=== PATIENT | female | born 2005 | race Caucasian/White ===

== ENCOUNTER 2023-02-04 09:21 | Emergency (ER) | payer OTHER ==
[2023-02-04] MEDS ORDERED: Ondansetron PF 4 MG/2 ML Vial ONE (09:52)
[2023-02-04] MEDS ORDERED: Mag-Al 1200 mg/1200 mg/30 ML UDCUP ONE (09:53)
[2023-02-04] MEDS ORDERED: Lidocaine Viscous Sol 2% 15 ml UD Cup SSP SCH (10:15)
[2023-02-04] MEDS ORDERED: Lidocaine Viscous Sol 2% 15 ml UD Cup SSW SCH (10:15)
[2023-02-04 10:16] LABS: #Basophils 0.1 thou/uL (0.0-0.2); #Eosinphils 0.1 thou/uL (0.0-0.7); #Monocytes 0.8 thou/uL (0.11-0.59); #Neutrophils 10.3 thou/uL (1.40-6.50); %Basophils 0.4 % (0.0-1.0); %Eosinophils 0.8 % (0.0-10.0); %Lymphocytes 16.6 % (28.0-48.0); %Monocytes 6.1 % (0.0-4.0); %Neutrophils 75.7 % (31.0-61.0); Hematocrit 43.9 % (36.0-47.0); Hemoglobin 14.8 g/dL (12.0-16.0); Mean Corpuscular HGB CONC 33.7 g/dL (32.0-36.0); Mean Corpuscular Hemoglobin 29.5 pg (25.0-35.0); Mean Corpuscular Volume 87.5 fl (78.0-98.0); Mean Platelet Volume 10.8 fL (7.4-10.4); Platelet Count 220 10x3/uL (130-400); RBC Distribution Width 13.1 % (11.5-14.5); Red Blood Cell (RBC) Count 5.02 mill/uL (4.00-5.20); White Blood Cell (WBC) Count 13.6 10x3/uL (4.8-10.8)
[2023-02-04 10:28] LABS: BHCG - Serum Negative (NEGATIVE); Pregs Control Background? CLEAR/WHITE (CLR/WHITE); Pregs Control Bar Appear? YES (CONTROL BAR)
[2023-02-04 10:47] LABS: ALT (SGPT) 34 U/L (8-55); AST (SGOT) 84 U/L (5-30); Albumin 4.5 g/dL (3.5-5.0); Alkaline Phosphatase 52 U/L (40-100); Anion Gap 14 mmol/L (10-20); BUN (Urea Nitrogen) 15 mg/dL (8.4-21.0); Bilirubin, Total 0.9 mg/dL (0.2-1.2); Calc. Creatinine Clearance 0 mL/min (70-130); Calcium 9.6 mg/dL (7.8-10.44); Carbon Dioxide 25 mmol/L (22-29); Chloride 105 mmol/L (98-107); Estimated GFR 83; Globulin 3.2 g/dL (2.4-3.5); Glucose 93 mg/dL (70-105); Lipase 60 U/L (8-78); Potassium 4.5 mmol/L (3.5-5.1); Protein, Total 7.7 g/dL (6.0-8.3); Sodium 139 mmol/L (136-145)
[2023-02-04 10:48] LABS: Troponin I Less than 0.010 ng/mL (< 0.028)
== END 2023-02-04 11:17 | disposition home or self-care (01) ==
LOC: ERS 09:21
DX: K29.70 Gastritis, unspecified, without bleeding (principal)
CPT/HCPCS: 71045; 76705; 80053; 83690; 84484; 84703; 85025; 93005; 96361; 96374; J2405